=== PATIENT | male | born 1970 | race African-American/Black ===

== ENCOUNTER 2017-02-05 09:27 | Emergency (ER) | payer MEDICAID ==
[~2017-02-05] VITALS: Ht 177.8 cm; Wt 85.0 kg
[2017-02-05] MEDS ORDERED: HYDROCODONE/ACETAMINOPHEN 5/325MG TABLET PO ONE (12:45)
[2017-02-05] MEDS ORDERED: KETOROLAC 60MG/2ML VIAL IM ONE (12:45)
[2017-02-05 17:14] VITALS: BP 133/71
== END 2017-02-05 17:18 | disposition home or self-care (01) ==
LOC: ER 09:34
DX: T14.8 Other injury of unspecified body region (principal); F20.9 Schizophrenia, unspecified; M25.512 Pain in left shoulder; M79.1 Myalgia; R07.81 Pleurodynia; R10.9 Unspecified abdominal pain; X58.XXXA Exposure to other specified factors, initial encounter; Y93.89 Activity, other specified; Y92.89 Other specified places as the place of occurrence of the external cause; Y99.8 Other external cause status
CPT/HCPCS: 73030; 96372; 99284; J1885; Z7610

== ENCOUNTER 2020-10-08 14:40 | Emergency (ER) | payer MEDICAID ==
[~2020-10-08] VITALS: Ht 172.7 cm; Wt 95.0 kg
[2020-10-08] MEDS ORDERED: KETOROLAC 30MG/ML VIAL IM ONE (15:30)
[2020-10-08 17:20] VITALS: BP 129/81
== END 2020-10-08 17:20 | disposition home or self-care (01) ==
LOC: ER 14:40
DX: S90.02XA Contusion of left ankle, initial encounter (principal); S70.11XA Contusion of right thigh, initial encounter; Y04.2XXA Assault by strike against or bumped into by another person, initial encounter; Y93.89 Activity, other specified; Y92.89 Other specified places as the place of occurrence of the external cause; R03.0 Elevated blood-pressure reading, without diagnosis of hypertension
CPT/HCPCS: 73552; 73610; 96372; 99284; J1885

== ENCOUNTER 2021-02-14 19:28 | Emergency (ER) | payer MEDICAID, OTHER ==
[~2021-02-14] VITALS: Ht 177.8 cm; Wt 98.0 kg
[2021-02-14] MEDS ORDERED: LIDOCAINE HCL/PF 1% 10 MG/ML 5ML VIAL IJ ONE (21:00)
[2021-02-14] MEDS ORDERED: BACITRACIN ZINC OINT UDPKT TOP NR (21:00)
[2021-02-14 21:27] LABS: BASOPHILS % 0.7 % (0.0-2.0); EOSINOPHILS % 1.7 % (0.0-5.0); HEMATOCRIT. 46.2 % (42.0-52.0); HEMOGLOBIN. 15.9 g/dL (14.0-18.0); LYMPHOCYTES % 22.4 % (20.0-50.0); MEAN CORPUSCULAR HEMOGLOBIN 31.6 pg (28.0-32.0); MEAN CORPUSCULAR VOLUME 91.5 fL (80.0-94.0); NEUTROPHILS % 70.2 % (40.0-76.0); PLATELET 243 x1000/uL (130-400); RED BLOOD CELL COUNT 5.05 mill/uL (4.7-6.1); RED CELL DISTRIBUTION WIDTH 15.9 % (11.6-14.6)
[2021-02-14 21:39] LABS: CHLORIDE 106 mEq/L (98-107)
[2021-02-14 21:45] LABS: ETHANOL BLOOD 167 mg/dL
[2021-02-14] MEDS ORDERED: TETANUS, DIPHTHERIA, PERTUSSIS VAC/PF 0.5ML (>7YR OLD) IM ONE (22:30)
[2021-02-14 22:48] VITALS: BP 142/78
== END 2021-02-14 22:55 ==
LOC: ER 19:28
DX: S61.213A Laceration without foreign body of left middle finger without damage to nail, initial encounter (principal); F10.129 Alcohol abuse with intoxication, unspecified; Y90.6 Blood alcohol level of 120-199 mg/100 ml; E87.2 Acidosis; Y35.813A Legal intervention involving manhandling, suspect injured, initial encounter; Y93.02 Activity, running; Y92.488 Other paved roadways as the place of occurrence of the external cause; Z23 Encounter for immunization
CPT/HCPCS: 12002; 36415; 80048; 80076; 80307; 80320; 80329; 85025; 90471; 90715; 99283; J3490; Z7610; G0480

== ENCOUNTER 2023-06-03 19:49 | Emergency (ER) | payer MEDICAID, OTHER ==
[~2023-06-03] VITALS: Ht 188 cm; Wt 100.0 kg
[2023-06-03 20:00] VITALS: O2SAT 98
[2023-06-03] MEDS ORDERED: KETOROLAC 30MG/ML VIAL IM ONE (21:30)
[2023-06-03 21:41] VITALS: BP 161/90; PULSE 74; RESP 18
[2023-06-03] MEDS ORDERED: ACETAMINOPHEN 325MG TABLET PO ONE (21:45)
[2023-06-03 21:55] VITALS: TEMP 98.5
[2023-06-04] MEDS ORDERED: IBUP-2029 MT (20:54)
== END 2023-06-03 22:05 | disposition left against medical advice (07) ==
LOC: ER 19:49
DX: S64 Injury of nerves at wrist and hand level (principal); I10 Essential (primary) hypertension; J45.909 Unspecified asthma, uncomplicated; E11.9 Type 2 diabetes mellitus without complications; Y04.0XXA Assault by unarmed brawl or fight, initial encounter; Y93.89 Activity, other specified; Y92.89 Other specified places as the place of occurrence of the external cause; Y99.8 Other external cause status
CPT/HCPCS: 73120; 99283; J1885

== ENCOUNTER 2023-06-04 18:03 | Emergency (ER) | payer MEDICAID, OTHER ==
[~2023-06-04] VITALS: Ht 182.9 cm; Wt 89.3 kg
[2023-06-04 18:32] VITALS: O2SAT 99
[2023-06-04] MEDS ORDERED: IBUP-2029 MT (20:54)
[2023-06-04] MEDS ORDERED: IBUPROFEN 600MG TABLET PO NR (21:00)
[2023-06-04 22:10] VITALS: BP 121/69; PULSE 68; RESP 16; TEMP 98.7
== END 2023-06-04 22:10 | disposition home or self-care (01) ==
LOC: ER 18:03
DX: M79.641 Pain in right hand (principal); F41.9 Anxiety disorder, unspecified; F32.9 Major depressive disorder, single episode, unspecified; E11.9 Type 2 diabetes mellitus without complications; I10 Essential (primary) hypertension
CPT/HCPCS: 73120; 99283

== ENCOUNTER 2024-03-19 00:07 | Emergency (ER) | payer MEDICAID ==
[~2024-03-19] VITALS: Ht 182.9 cm; Wt 82.0 kg
[~2024-03-19 00:07] MED LIST: IBUP-2029 MT
[2024-03-19 00:13] VITALS: O2SAT 97
[2024-03-19] MEDS: IBUPROFEN 600MG TABLET PO ONE (00:53)
[2024-03-19] MEDS ORDERED: CYCL10TA21 MT (02:31)
[2024-03-19] MEDS ORDERED: IBUP-2029 MT (02:31)
[2024-03-19 02:47] VITALS: BP 129/79; PULSE 77; RESP 18; TEMP 97.8
== END 2024-03-19 02:49 | disposition home or self-care (01) ==
LOC: ER 00:07
DX: S10.83XA Contusion of other specified part of neck, initial encounter (principal); S90.01XA Contusion of right ankle, initial encounter; S30.0XXA Contusion of lower back and pelvis, initial encounter; F41.9 Anxiety disorder, unspecified; E11.9 Type 2 diabetes mellitus without complications; I10 Essential (primary) hypertension; F32.A Depression, unspecified; V98.8XXA Other specified transport accidents, initial encounter; Y93.89 Activity, other specified; Y92.89 Other specified places as the place of occurrence of the external cause; Y99.8 Other external cause status
CPT/HCPCS: 72040; 72100; 73610; 99284